=== PATIENT | male | born 1980 | race Caucasian/White ===

== ENCOUNTER 2023-11-21 11:18 | Day surgery (SDC) | payer BC, OTHER ==
[2023-11-20 12:20] LABS: Anion Gap 5.9 mEq/L (5.0-15.0); Potassium 3.9 mEq/L (3.5-5.1)
[2023-11-21] MEDS: Ringers Lactate 1,000 ML IV ONE (11:40)
[2023-11-21] MEDS ORDERED: FENTANYL CITR 100 MCG/2 ML ONE (12:08)
[2023-11-21] MEDS ORDERED: LIDOCAINE 2% MPF 5 ML VIAL ONE (12:08)
[2023-11-21] MEDS ORDERED: propofoL 200 MG/20 ML VIAL IV ONE (12:08)
[2023-11-21] MEDS ORDERED: ONDANSETRON 4 MG/2 ML VIAL ONE (12:08)
[2023-11-21] MEDS ORDERED: MIDAZOLAM HCL 2 MG/2 ML INJ ONE (12:09)
[2023-11-21] MEDS: CEFAZOLIN SODIUM 1 GM/VIAL ONE (13:28)
[2023-11-21] MEDS ORDERED: dexAMETHasone 10 MG/ML VIAL ONE (13:30)
[2023-11-21] MEDS ORDERED: GLYCOPYRROLATE 0.2 MG/ML SYR ONE (13:31)
[2023-11-21] MEDS: LIDOCAINE HCL/EPINEPHRINE 20 ML MDV ONE (13:39)
--- NOTE | 2023-11-21 14:21 | P.OP ---
Preoperative diagnosis: Left Upper and Right Lower Back Cysts, LEFT forearm cyst Postoperative diagnosis: Left Upper and Right Lower Back Cysts, LEFT forearm cyst Primary procedure: Excision of Left Upper and Right Lower Back Cysts, LEFT forearm cyst Anesthesia: GETA + Local Estimated blood loss: <5cc Specimen: Left Upper and Right Lower Back Cysts, LEFT forearm cyst Findings: Epidermal inclusion Cysts Complications: None Transferred to: Recovery Room Condition: Good
[2023-11-21 15:05] VITALS: O2SAT 100
[2023-11-21 15:36] VITALS: BP 118/79; TEMP 96.9
--- NOTE | 2023-11-21 17:57 | OP ---
Date of Procedure: 11/21/2023 Surgeon: Shadi Sam MD, Preoperative Diagnoses: Left upper and right lower back cyst and left forearm cyst. Postoperative Diagnoses: Left upper and right lower back cyst and left forearm cyst. Procedure Performed: Excision of left upper and right lower back cyst and left dorsal forearm cyst. Anesthesia: General endotracheal plus local with 1% lidocaine with epinephrine. Estimated Blood Loss: Less than 5 cc. Specimen: Left upper and right lower back cyst and a left forearm cyst. Findings: Epidermal inclusion cysts. The lower back cyst appeared to have ruptured. Complications: None. Disposition: The patient was transferred to recovery room in good condition. Procedure In Detail: After informed consent was obtained, patient was brought to the operating room, prepped and draped in the usual sterile fashion after adequate anesthesia was achieved. I made an e lliptical incision around the left upper back cyst at the subcutaneous tissues ultimately dissected a round what appeared to be an epidermal inclusion cyst removed in its entirety, sent it off for pathol ogic examination. We copiously irrigated the area and closed the cavity after hemostasis was achieve d with the minimal electrocautery with a 3-0 nylon suture in a running fashion and a sterile dressing placed over top. I then turned my attention to the right lower back cyst, which was anesthetized, s harply incised, and I ultimately dissected down to find an epidermal inclusion cyst. We had epitheli alization of the tissue around with evidence of previous rupture. It was removed in its entirety, se nt off for pathologic examination. The area was copiously irrigated. Hemostasis was achieved with e lectrocautery. The wound was then packed with Vashe soaked gauze and a sterile dressing placed over top. I then turned my attention to a left dorsal forearm cyst. I palpated this area. It was consis tent with either a lipomatous lesion or a simple cyst. I then made an elliptical incision circumfere ntially around the area after appropriately anesthetizing the skin, dissection down to find this lobu lated benign-appearing fatty cyst, sent it off for pathologic examination after being ligated using e lectrocautery. The wound was then irrigated. No hemostatic maneuvers were required. I then closed the deep dermal plane using interrupted 2-0 Vicryl suture and the skin was closed with a 4-0 Monocryl in a running fashion. Dermabond was placed over top. The patient tolerated the procedure well with out incident or complication and transferred to PACU in good condition. All counts were correct at t he end of the case. MAZIN/DALE Voice ID: [id number] Report ID: [id number]
--- NOTE | 2023-11-22 11:57 | EKG ---
Test Date: 2023-11-20 Test Time: 11:52:02 Dental Technician Apprentice: REBA MEASUREMENT RESULTS: Intervals: Rate: 73 MA: 174 QRSD: 106 QT: 366 QTc: 403 [place]: P: 49 MA: 174 QRS: 89 T: 37 INTERPRETIVE STATEMENTS: Normal sinus rhythm Normal ECG No previous ECG available for comparison Electronically Signed On 11-22-23 11:53:04 CDT by Anupam Pham
== END 2023-11-21 15:30 | disposition home or self-care (01) ==
LOC: OR 11:18
PROVIDERS: ATTEND Surgery
PROC: 0JBH0ZZ Excision of Left Lower Arm Subcutaneous Tissue and Fascia, Open Approach (ICD-10-PCS; 2023-11-21)
PROC: 0JB70ZZ Excision of Back Subcutaneous Tissue and Fascia, Open Approach (ICD-10-PCS; principal; 2023-11-21 13:30)
DX: L72.0 Epidermal cyst (principal); D23.5 Other benign neoplasm of skin of trunk
CPT/HCPCS: 93005; 80048; 36415; 88304; 11403; 11404 ×2; J2704; J2001; J2250; J3010; J1100; J2405; J7120; J0690